=== PATIENT | male | born 1955 | race Caucasian/White ===

== ENCOUNTER → 2020-04-12 | Outpatient (CLI) | payer MEDICARE | END | disposition home or self-care (01) | LOC: LABWHC1 08:41 | PROVIDERS: ATTEND Urology | DX: C61 Malignant neoplasm of prostate (principal) | CPT/HCPCS: 36415; 84153 ==

== ENCOUNTER → 2020-10-05 | Outpatient (CLI) | payer MEDICARE | END | disposition home or self-care (01) | LOC: LABWHC1 09:21 | PROVIDERS: ATTEND Urology | DX: C61 Malignant neoplasm of prostate (principal) | CPT/HCPCS: 36415; 84153 ==

== ENCOUNTER → 2020-11-14 | Outpatient (CLI) | payer MEDICARE ==
--- NOTE | 2020-11-14 09:57 | MR ---
EXAMINATION TYPE: MR Prostate wo/w con DATE OF EXAM: 11/14/2020 COMPARISON: None. INDICATION: Prostate cancer originally diagnosed r4 years ago with rising PSA. PSA: 4.7 ng/ml on October 18, 2020 Recent Biopsy and Date: December 22, 2019 Pathology Report (If Applicable): Atypical small acinar proliferation right lateral mid. Atypical sma ll acinar proliferation left mid. Prostate right transitional 2. Adenocarcinoma [place] grade 3+3 = 610% of tissue measuring 1 mm in length TECHNIQUE: Examination was performed using a 3T MRI without an endorectal coil. Multiparametric imaging was perf ormed with T2 mutliplanar sequences, axial diffusion weighted imaging and dynamic contrast enhanced i maging, utilizing 10 mL intravenous Gadavist gadolinium contrast. FINDINGS: There is no clinically significant cancer identified. PROSTATE VOLUME: 4.7 cm SI x 3.9 cm AP x 6.0 cm LR Vol= 57.6 cc PSA DENSITY: 0.08 ng/ml/cc Predicted PSA =6.912. There is heterogeneous enlarged prostate. Peripheral zone is markedly heterogeneous with multifocal a reas of diminished T2 signal. Areas of diminished signal on ADC mapping identified without restricted diffusion. Overall PI-RADS 2. Central transitional zone shows marked heterogeneity with areas of heterogeneous diminished signal on T2-weighted images, no areas of suspicious restricted diffusion or at least moderate hypointensity a reas T2 weighted images. Prostatic capsule is maintained. Seminal vesicles within normal limits. Moderately distended bladder without suspicious wall thickening or trabeculation. No adjacent adenopathy. Visualized osseous struc tures are intact. No groin hernia or adenopathy. Visualized bowel is unremarkable. No pelvic fluid co llection. IMPRESSION: A focus of clinically significant cancer is not identified. Highest Assessment Category: 3 MRI Stage: T1c N0 M0 based on review of pelvic images. False negative rates for MRI range from 5-20% depending on risk profile. Assessment Categories: 1 ? Very low (clinically significant cancer is highly unlikely to be present) 2 ? Low (clinically significant cancer is unlikely to be present) 3 ? Intermediate (the presence of clinically significant cancer is equivocal) 4 ? High (clinically significant cancer is likely to be present) 5 ? Very high (clinically significant cancer is highly likely to be present)
== END | disposition home or self-care (01) ==
LOC: RADMRIMAIN 08:05
PROVIDERS: ATTEND Urology
DX: C61 Malignant neoplasm of prostate (principal)
CPT/HCPCS: 72197; A9585

== ENCOUNTER → 2021-04-24 | Outpatient (CLI) | payer MEDICARE | END | disposition home or self-care (01) | LOC: LABWHC1 09:06 | PROVIDERS: ATTEND Urology | DX: C61 Malignant neoplasm of prostate (principal) | CPT/HCPCS: 36415; 84153 ==

== ENCOUNTER → 2021-10-25 | Outpatient (CLI) | payer MEDICARE | END | disposition home or self-care (01) | LOC: LABWHC1 08:33 | PROVIDERS: ATTEND Urology | DX: C61 Malignant neoplasm of prostate (principal) | CPT/HCPCS: 36415; 84153 ==

== ENCOUNTER → 2022-05-11 | Outpatient (CLI) | payer MEDICARE | END | disposition home or self-care (01) | LOC: LABWHC1 08:50 | PROVIDERS: ATTEND Urology | DX: C61 Malignant neoplasm of prostate (principal) | CPT/HCPCS: 36415; 84153 ==

== ENCOUNTER → 2022-10-31 | Outpatient (CLI) | payer MEDICARE | END | disposition home or self-care (01) | LOC: LABWHC1 11:07 | PROVIDERS: ATTEND Urology | DX: C61 Malignant neoplasm of prostate (principal) | CPT/HCPCS: 36415; 84153 ==

== ENCOUNTER → 2022-11-29 | Outpatient (CLI) | payer MEDICARE | END | disposition home or self-care (01) | LOC: LABWHC1 09:00 | PROVIDERS: ATTEND Urology | DX: C61 Malignant neoplasm of prostate (principal) | CPT/HCPCS: 36415; 84153 ==

== ENCOUNTER → 2023-05-30 | Outpatient (CLI) | payer MEDICARE | END | disposition home or self-care (01) | LOC: LABWHC1 08:54 | PROVIDERS: ATTEND Urology | DX: C61 Malignant neoplasm of prostate (principal) | CPT/HCPCS: 36415; 84153 ==

== ENCOUNTER → 2023-12-10 | Outpatient (CLI) | payer MEDICARE | END | disposition home or self-care (01) | LOC: LABWHC1 09:17 | PROVIDERS: ATTEND Urology | DX: C61 Malignant neoplasm of prostate (principal) | CPT/HCPCS: 36415; 84153 ==

== ENCOUNTER → 2024-02-24 | Outpatient (CLI) | payer MEDICARE ==
--- NOTE | 2024-02-24 19:02 | CA ---
Transthoracic Echo Report Name: Eduardo Mobley Age: 68 Gender: M : 1955 Exam Date: 02/24/2024 17:52 Exam Location: [facility] Ht (in): 72 Wt (lb): 217 Ordering Physician: Anderson Fraga MD Attending/Referring Phys: Anderson Fraga MD Instrumentation Engineering Technician Valerie Segura, [facility] Procedure CPT: Indications: I10 HYPERTENSION R07.89 OTHER CHEST PAIN Cardiac Hx: Technical Quality: Good Contrast 1: Total Dose (mL): Contrast 2: Total Dose (mL): MEASUREMENTS (Male / Female) Normal Values 2D ECHO LV Diastolic Diameter PLAX 4.6 cm 4.2 - 5.9 / 3.9 - 5.3 cm LV Systolic Diameter PLAX 3.2 cm IVS Diastolic Thickness 1.3 cm 0.6 - 1.0 / 0.6 - 0.9 cm LVPW Diastolic Thickness 1.4 cm 0.6 - 1.0 / 0.6 - 0.9 cm LV Relative Wall Thickness 0.6 RV Internal Dim ED PLAX 3.2 cm LA Systolic Diameter LX 4.2 cm 3.0 - 4.0 / 2.7 - 3.8 cm LV Diastolic Volume MOD 4C 154.3 cm??? LV Systolic Volume MOD 4C 72.3 cm??? LV Ejection Fraction MOD 4C 53.2 % LV Cardiac Index MOD 4C 2107.2 cm???/min???m??? LV Diastolic Length 4C 9.3 cm LV Systolic Length 4C 7.6 cm LV Diastolic Volume MOD 2C 146.8 cm??? LV Systolic Volume MOD 2C 61.7 cm??? LV Ejection Fraction MOD 2C 58.0 % LV Cardiac Index MOD 2C 2186.4 cm???/min???m??? LV Diastolic Length 2C 9.3 cm LV Systolic Length 2C 7.6 cm LA Volume 58.1 cm??? 18 - 58 / 22 - 52 cm??? LA Volume Index 25.7 cm???/m??? 16 - 28 cm???/m??? M-MODE Aortic Root Diameter MM 3.7 cm MV E Point Septal Separation 0.6 cm AV Cusp Separation MM 2.3 cm DOPPLER AV Peak Velocity 140.5 cm/s AV Peak Gradient 7.9 mmHg AI Peak Velocity 389.8 cm/s AI Peak Gradient 60.8 mmHg AI Pressure Half Time 1288.8 ms MV Area PHT 2.5 cm??? Mitral E Point Velocity 55.7 cm/s Mitral A Point Velocity 63.2 cm/s Mitral E to A Ratio 0.9 MV Deceleration Time 299.6 ms TR Peak Velocity 243.4 cm/s TR Peak Gradient 23.7 mmHg Right Ventricular Systolic Press 28.3 mmHg FINDINGS Left Ventricle Left ventricular ejection fraction is estimated at 55-60 %. Left ventricular cavity size normal. Mildly increased septal wall thickness. No obvious regional wall motion abnormalities. Right Ventricle Normal right ventricular size. Right ventricular systolic pressure within normal limits. Right Atrium Normal right atrial size. Left Atrium Mildly increased left atrial diameter. Mitral Valve Structurally normal mitral valve. No mitral stenosis. No evidence for mitral valve prolapse. Trace mitral regurgitation. Aortic Valve Trileaflet aortic valve. Mild aortic regurgitation. Tricuspid Valve Structurally normal tricuspid valve. Mild tricuspid regurgitation. Pulmonic Valve Structurally normal pulmonic valve. Mild pulmonic regurgitation. Pericardium No pericardial effusion. Aorta Normal size aortic root and proximal ascending aorta. CONCLUSIONS Normal LV systolic function. The ejection fraction is 55-60%. Mild left ventricular hypertrophy Normal right ventricular dimension and systolic function Mild aortic and mitral and tricuspid regurgitation Normal pulmonary artery systolic pressure No evidence of pericardial effusion Previewed by: Dr. Harshil Nieto MD (Electronically Signed) Final Date: 24 February 2024 19:01
== END | disposition home or self-care (01) ==
LOC: RADECHMAIN 17:38
PROVIDERS: ATTEND Family Medicine
DX: I11.0 Hypertensive heart disease with heart failure (principal); I34.0 Nonrheumatic mitral (valve) insufficiency; I35.1 Nonrheumatic aortic (valve) insufficiency; I36.1 Nonrheumatic tricuspid (valve) insufficiency; R07.89 Other chest pain
CPT/HCPCS: 93306

== ENCOUNTER → 2024-02-25 | Outpatient (CLI) | payer MEDICARE ==
[~2024-02-25] MED LIST: REGADENOSON 0.4 MG/5 ML SYRINGE IV PRN
--- NOTE | 2024-02-25 11:12 | CA ---
Lexiscan Nuclear Stress Test Report Name: Eduardo Mobley Exam Date: 02/25/2024 09:39 Exam Location: [facility] Ht (in): 72 Wt (lb): 217 BSA: 2.21 Ordering Phys: Anderson Fraga MD Referring Phys: Anderson Fraga MD Technologist: Deo Gipson Age: 68 Gender: M : 1955 Procedure CPT: Indications: R07.89 chest pain ICD-10 Codes: Patient History: Medications: SEE LIST Meds past 24 hrs: Pretest Chest Pain: STRESS TEST Lexiscan Protocol Exercise Duration (min:sec): 01:[address] Depressions (mm): Angina Score: Damico Score: Resting HR (bpm): 46 Peak HR (bpm): 62 Resting BP (mmHg): 168 / 80 Peak BP (mmHg): 190 / 88 MPHR: 150 Target HR: 128 % MPHR: 41 METS: 1.0 Total Dose: Peak Dose: Atropine: Double Product: 51296 BP Response: Stress Termination: INFUSION COMPLETE Stress Symptoms: NO SYMPTOMS Stress Summary: ECG ANALYSIS Resting ECG: Stress ECG: CONCLUSIONS Nondiagnostic electrocardiogram stress test Dr. Harshil Nieto MD (Electronically Signed) Final Date: 25 February 2024 11:11
== END | disposition home or self-care (01) ==
LOC: RADNMMAIN 07:41
PROVIDERS: ATTEND Family Medicine
DX: I10 Essential (primary) hypertension (principal); R07.89 Other chest pain
CPT/HCPCS: 93017; 78452; A9500; J2785

== ENCOUNTER → 2025-01-06 | Outpatient (CLI) | payer MEDICARE ==
--- NOTE | 2025-01-06 09:08 | MR ---
EXAMINATION TYPE: MR Prostate wo/w con DATE OF EXAM: 01/06/2025 8:33 AM COMPARISON: None. CLINICAL INDICATION: Male, 69 years old with history of C61 prostate ca; Prostate cancer, elevated PS A. TECHNIQUE: Multi-planar, multi-sequence imaging of the pelvis is performed prior to and following the uncomplicated administration of bolus intravenous gadolinium. IV Contrast: 10 mL Gadobutrol Interpretive Criteria: PI-RADS v2.1 SERUM PSA: 12-14-24 = 8.15 06-09-24 = 7.47 SURGICAL PATHOLOGY: 12/17/2023 negative FINDINGS: Prostatic dimensions: 6.3 x 5.4 x 5.0 cm. Ellipsoid Volume:89.06 (PSA density=0.09 ng/mL/mL) CENTRAL GLAND (Central and Transition Zones/CZ+TZ): Multiple bilateral, heterogenous appearing hypertrophic stromal nodules, without suspicious lesion. M edian lobe hypertrophy with protrusion into the base of the bladder. (PI-RADS 2) PERIPHERAL ZONE (PZ): Bilateral linear, indistinct wedgelike areas of low ADC, and low T2 signal, No evidence of masslike a bnormality, or localized perfusional hypervascularity, to further suggest a focus of clinically signi ficant prostate cancer. (PI-RADS 2) SEMINAL VESICLES (SV): Symmetric and unremarkable. PERIPROSTATIC TISSUES: Unremarkable. LYMPH NODES: No enlarged pelvic lymph node. REMAINING PELVIS: Bladder wall is within normal limits given distention. No abnormal free or organized intrapelvic fluid collection. No pathologic bowel dilation or mural thickening. No hernia visualized OSSEOUS STRUCTURES: No suspicious osseous abnormality. IMPRESSION: 1. No specific features for high-risk prostate cancer. Maximum PI-RADS score: 2. 2. Substantial BPH, estimated gland volume 89.06 (PSA density=0.09 ng/mL/mL) 3. No suspicious osseous lesion. No lymphadenopathy. No evidence of prostate adenocarcinoma involving the periprostatic tissues. [facility], , 01/06/2025 9:06 AM
== END | disposition home or self-care (01) ==
LOC: RADMRIMAIN 07:17
PROVIDERS: ATTEND Urology
DX: C61 Malignant neoplasm of prostate (principal); N40.0 Benign prostatic hyperplasia without lower urinary tract symptoms
CPT/HCPCS: 72197; A9585